=== PATIENT | male | born 1940 | race Caucasian/White ===

== ENCOUNTER → 2021-06-11 | Outpatient (CLI) | payer MEDICARE, BC ==
--- NOTE | 2021-06-11 15:34 | RAD ---
US DPLX ARTR EXTREM LOWER BILAT Indication: Reason: PVD, HTN, HX OF SMOKING, STENTS / Spl. Instructions: / History: Comparison: None. Procedure: Arterial pressures are measured in the arms and ankles. Findings: Right arm: 118 mm Hg. Right ankle: 128 mm Hg. Right leg EDENILSON: 1.1. Left arm: 122 mm Hg. Left ankle: 114 mm Hg. Left leg EDENILSON: 1.0. EDENILSON interpretation: Greater than 1.4 Calcified noncompressible vessels 0.96 to 1.4 Generally normal 0.81-0.95 Mild disease 0.51-0.80 Moderate disease 0.31-0.50 Moderate to severe disease 0.3 or below Severe disease IMPRESSION: 1. Normal bilateral ankle brachial indices. Electronically signed by: Jj Hansen DO (06/11/2021 3:32 PM) [id number]
--- NOTE | 2021-06-11 15:38 | RAD ---
MR#: [id number] Date of Study: 06/11/2021 Ordering Physician: MARIBELL LITTLEJOHN, Referring Physician: MARIBELL LITTLEJOHN, Tech: Zuleyma Longo RVT,MARCIAVA APPROVED REPORT Patient Location: OUT-PATIENT Indications PAD Grayscale images of the bilateral lower extremity arterial vessels demonstrates moderate diffuse athe rosclerotic plaque. On the right side there are overall mostly triphasic waveforms with normal velocities extending from the common femoral artery to the popliteal segment. Below the knee mildly elevated velocities are no dustin in the posterior tibial and peroneal vessels but no significant stenosis is noted with three-vess el runoff. On the left side there are elevated velocities at the level of the left common femoral artery it is u nclear if this is related to the previous anastomosis of his aortobifemoral bypass or due to technica l challenges but nonetheless there are triphasic waveforms suggestive of no significant proximal infl ow disease. Below the common femoral artery there are mostly triphasic and biphasic waveforms again overall suggestive of less than 50% stenosis. Elevated velocities are noted in the posterior tibial artery consistent with greater than 75% stenosis. Nonetheless, there is three-vessel runoff. Risk Factors Hypertension Smoking Surgery/Intervention Bypass Graft 1 : VELOCITY AND DOPPLER WAVEFORM ANALYSIS RIGHT cm/secWaveformSeverity LEFT cm/secWaveform Severity pCFA 86.8TriphasicpCFA 356.7Triphasic Prof Fem Art. 54.0TriphasicProf Fem Art. 58.0Biphasic Fem Art Prox. 107.7TriphasicFem Art Prox. 96.2Triphasic Fem Art Mid. 109.2TriphasicFem Art Mid. 87.4Triphasic Fem Art Dist. 133.0TriphasicFem Art Dist. 136.0Triphasic Pop Art(Fossa) 54.6TriphasicPop Art(AK) 49.5Triphasic MACHINE ADJUSTER LEADER Prox. 125.8TriphasicPTA Prox. 280.9Triphasic MACHINE ADJUSTER LEADER Dist. 87.9TriphasicPTA Dist. 52.7Monophasic Per Art Prox. 105.3TriphasicPer Art Prox. 71.9Triphasic DESHAWN Prox. 27.5BiphasicATA Prox. 57.5Triphasic DPA 35TriphasicDPA 93Monophasic Critical Notification Critical Value: No <Conclusion> 1. No significant right lower extremity arterial disease 2. Elevated left common femoral arterial velocities without focal stenosis based on waveforms. 3. Left posterior tibial artery stenosis 4. Recommend repeat arterial Doppler study in 6 months. Signed by : Maribell Littlejohn, Electronically Approved : 06/11/2021 15:37:48
--- NOTE | 2021-06-11 15:52 | RAD ---
MR#: [id number] Date of Study: 06/11/2021 Ordering Physician: MARIBELL LITTLEJOHN, Referring Physician: MARIBELL LITTLEJOHN, Tech: Zuleyma Longo RVT, [facility] APPROVED REPORT Patient Location: OUT-PATIENT Laterality:Bilateral Indications CVA/TIA: Grayscale images the bilateral carotid vessels demonstrates mild to moderate diffuse atherosclerotic plaque. On the right side overall there is 0 to less than 50% stenosis based on velocity criteria with normal ICA to CCA ratios and antegrade vertebral velocities within the normal range. On the left side there is likely a moderate 50 to 69% stenosis based on velocity criteria involving t he proximal and mid internal carotid artery. Normal ICA to CCA ratios on the left side with antegrad e vertebral velocities within the normal range. Risk Factors Hypertension: PAD Smoking Doppler Spectral Velocity Analysis Right Left pCCA 78/13 cm/spCCA 94/18 cm/s mCCA 74/16 cm/smCCA 97/20 cm/s dCCA 70/14 cm/sdCCA 96/18 cm/s Bulb 45/11 cm/sBulb 72/16 cm/s ECA 91/12 cm/sECA 97/9 cm/s pICA 58/14 cm/spICA 152/41 cm/s Michele 77/20 cm/smICA 129/35 cm/s dICA 89/26 cm/sdICA 106/29 cm/s Vert. 51/5 cm/sVert. 49/13 cm/s ICA/CCA 1.14ICA/CCA 1.62 Critical Notification Critical Value: No <Conclusion> 1. Moderate left internal carotid arterial disease. No significant right-sided disease. Signed by : Maribell Littlejohn, Electronically Approved : 06/11/2021 15:51:51
--- NOTE | 2021-06-11 19:51 | CARD ---
MR#: [id number] Date of Study: 06/11/2021 Ordering Physician: MARIBELL BURCH, Referring Physician: MARIBELL BURCH, Tech: Gianna Arellano, [facility] APPROVED REPORT EXAM: Two-dimensional and M-mode echocardiogram with Doppler and color Doppler. Other Information Quality : AverageHR: 85bpm INDICATION Atrial Fibrillation RISK FACTORS Hypertension Hyperlipidemia 2D DIMENSIONS RVDd3.5 (2.9-3.5cm)Left Atrium(2D)3.4 (1.6-4.0cm) IVSd1.0 (0.7-1.1cm)Aortic Root(2D)3.3 (2.0-3.7cm) LVDd4.2 (3.9-5.9cm)LVOT Diameter2.0 (1.8-2.4cm) PWd1.0 (0.7-1.1cm)LVDs2.8 (2.5-4.0cm) FS (%) 33.5 %SV49.9 ml Aortic Valve AoV Peak [place].159.0cm/sAoV VTI32.5cm AO Peak GR.10.1mmHgLVOT Peak [place].115.2cm/s LVOT VTI 25.86cmAO Mean GR.5mmHg MAGDI (VMAX)2.24vh8UWE (VTI)2.53cm2 Mitral Valve MV E Psfxjsiv18.4cm/sMV E Peak Gr.5mmHg MV DECEL [id number] A Alfnfhxz893.5cm/s MV E Mean Gr.2mmHgE/A Ratio0.6 Pulmonary Valve PV Peak Unawmnma810.6cm/sPV Peak Grad.4mmHg Tricuspid Valve TR P. Cdmurppk285wq/sRAP LHUXFUPL1hbNr TR Peak Gr.80brAyWZPY83uyJc LEFT VENTRICLE The left ventricle is normal size. There is normal left ventricular wall thickness. The left ventricu lar systolic function is normal and the ejection fraction is within normal range. The Ejection Fracti on is 55-60%. There is normal LV segmental wall motion. Transmitral Doppler flow pattern is Grade I-a bnormal relaxation pattern. RIGHT VENTRICLE The right ventricle is borderline dilated. There is normal right ventricular wall thickness. The righ t ventricular systolic function is normal. ATRIA The left atrium size is normal. The right atrium is borderline dilated. The interatrial septum is int act with no evidence for an atrial septal defect or patent foramen ovale as noted on 2-D or Doppler i maging. AORTIC VALVE The aortic valve is normal in structure and function. Doppler and Color Flow revealed trace aortic re gurgitation. There is no significant aortic valvular stenosis. Calculated aortic valve area is 2.5 cm 2 with maximum pressure gradient of 11 mmHg and mean pressure gradient of 6 mmHg. MITRAL VALVE The mitral valve is normal in structure and function. There is no evidence of mitral valve prolapse. There is no mitral valve stenosis. Doppler and Color Flow revealed no mitral valve regurgitation note d. TRICUSPID VALVE The tricuspid valve is normal in structure and function. Doppler and Color Flow revealed trace tricus pid regurgitation with an estimated PAP of 39 mmHg. There is no tricuspid valve stenosis. GREAT VESSELS The aortic root is normal in size. The ascending aorta is normal in size. The IVC is normal in size a nd collapses >50% with inspiration. PERICARDIAL EFFUSION There is no evidence of significant pericardial effusion. Critical Notification Critical Value: No <Conclusion> The left ventricle is normal size. The left ventricular systolic function is normal and the ejection fraction is within normal range. The Ejection Fraction is 55-60%. Doppler and Color Flow revealed trace aortic regurgitation. There is no significant aortic valvular stenosis. Doppler and Color Flow revealed no mitral valve regurgitation noted. Doppler and Color Flow revealed trace tricuspid regurgitation with an estimated PAP of 39 mmHg. Signed by : Syed Bautista MD Electronically Approved : 06/11/2021 19:50:14
== END ==
LOC: US 12:50
PROVIDERS: ATTEND Internal Medicine Cardiovascular Disease
DX: I65.23 Occlusion and stenosis of bilateral carotid arteries (principal); I70.8 Atherosclerosis of other arteries; I48.91 Unspecified atrial fibrillation; I73.9 Peripheral vascular disease, unspecified; I63.9 Cerebral infarction, unspecified
CPT/HCPCS: 93306; 93880; 93923; 93925

== ENCOUNTER → 2021-06-19 | Outpatient (CLI) | payer MEDICARE ==
[~2021-06-19] MED LIST: REGADENOSON 0.4 MG/5 ML DISP.SYRIN. IV ONE
--- NOTE | 2021-06-19 18:42 | RAD ---
MR#: [id number] Date of Study: 06/19/2021 Ordering Physician: MARIBELL LITTLEJOHN, Referring Physician: MARYCARMEN MURRELL Tech: JEROME Schwartz ARRT (R) (N) APPROVED REPORT Test Type: Pharmacological Stress Nurse/Tech: ANITHA Mcrae Test Indications: CAD Cardiac History: High cholesterol, Hypertension, PTCA Medications: See Electronic Medical Record Medical History: See Electronic Medical Record Resting ECG: SR Resting Heart Rate: 59 bpm Resting Blood Pressure: 168/65mmHg Pretest Chest Pain: None Nurse/Tech Notes SR, no significant acute changes Consent: The procedure was explained to the patient in lay terms. Informed consent was witnessed. Baljit eout was entered into [employer]. History and Stress Test performed by JEROME Schwartz ARRT (R) (N) Pharm. Details Pharmacologic stress testing was performed using 0.4mg per 5ml of regadenoson given intravenously ove r 7-10 seconds. Stress Symptoms No chest pain or symptoms. POST EXERCISE Reason for Termination: Infusion complete Target HR: No Max HR: 92 bpm 77% of Maximum Predicted HR: 118 bpm Exercise duration: 6 min:sec, Stage Max Blood Pressure: 169/75mmHg Blood Pressure response to exercise: Normal blood pressure response during stress. Chest Pain: No. Arrhythmia: No. ST Change: No. INTERPRETATION Stress EKG Conclusion: SR, no significant acute changes w/ stress. Imaging Protocol IMAGE PROTOCOL: Rest Tc-99m/stress Tc-99m 1 day Rest: Stress: Viability: Radiopharm.Tc99m AkfutuiwaKt64c Sestamibi Cazt55qKq 31mCi Img Date 06/19/2021 06/19/2021 Inj-Img Zpij16cya. 60min. Rest Admin Site:IV - Right AntecubitalAdministrator: JEROME Schwartz ARRT (R)(N) Stress Admin Site: IV - Right AntecubitalAdministrator: JEROME Schwartz ARRT (R)(N) STRESS DATA End Diast. Vol.71.0mlAv. Heart Rate64.0bpm End Syst. Vol.18.0mlCO Index BSA0.0L/min Myocardial Fbws923.0gEject. Gzhbbuhk69.0% Stress Rates Pk. Fill Rate2.53EDV/secLVtime Pk. Fill 170.39msec Pk. Empty Rate4.31ESV/secLVtime Pk. Enkwh244.38msec 1/3 Pk. Fill1.40EDV/sec Stress Scores Regional WT0.00Summed WT3.00 Regional WM0.00Summed WM0.00 The rest and stress images show normal perfusion, normal contraction and thickening. LV Perf. Quant 17 Seg. SSS0.00 17 Seg. SRS2.00 17 Seg. SDS0.00 Stress Defect Extent (% LAD)0.00Rest Defect Extent (% LAD)0.00Rev. Defect Extent (% LAD)0.00 Stress Defect Extent (% LCX) 0.00Rest Defect Extent (% LCX)0.00Rev. Defect Extent (% LCX)0.00 Stress Defect Extent (% RCA)0.00Rest Defect Extent (% RCA)4.40Rev. Defect Extent (% RCA)0.00 Stress Defect Extent (% YURIDIA)0.00Rest Defect Extent (% YURIDIA)0.90Rev. Defect Extent (% YURIDIA)0.00 Other Information Quality:Good Risk Assessment: Low Risk Conclusion 1. No evidence of EKG changes with stress testing. 2. Normal perfusion at stress/rest. 3. Low risk study. 4. EF > 60%. Signed by : Maribell Littlejohn, Electronically Approved : 06/19/2021 18:41:39
== END ==
LOC: NM 07:45
PROVIDERS: ATTEND Internal Medicine Cardiovascular Disease
DX: I25.10 Atherosclerotic heart disease of native coronary artery without angina pectoris (principal)
CPT/HCPCS: 78452; 93017; A9500; J2785

== ENCOUNTER 2021-11-07 08:02 | Emergency (ER) | payer MEDICARE ==
[~2021-11-07] VITALS: Ht 177.8 cm; Wt 73.5 kg
[2021-11-07 08:33] VITALS: BP 166/78
[2021-11-07] MEDS ORDERED: IOHEXOL 350 MG/ML 100 ML VIAL. IV ONE (10:00)
[2021-11-07] MEDS ORDERED: CONTRAST GIVEN. MC PRN (10:00)
[2021-11-07 10:10] LABS: BASO % 1 % (0-3); EOS # 0.1 x10^3/uL (0.0-0.7); EOS % 1 % (0-3); HEMATOCRIT 41.8 % (39.0-53.0); HEMOGLOBIN 13.8 g/dL (13.0-17.5); LYMPH % 16 % (24-48); MEAN CORPUSCULAR HEMOGLOBIN 32 pg (25-35); MEAN CORPUSCULAR HGB CONC 33 g/dL (31-37); MEAN CORPUSCULAR VOLUME 96 fL (79-100); MONO # 0.7 x10^3/uL (0.0-1.1); MONO % 11 % (0-9); NEUT # 4.3 x10^3uL (1.8-7.7); NEUT % 71 % (31-73); PLATELET COUNT 174 x10^3/uL (140-400); RED BLOOD COUNT 4.34 x10^6/uL (4.30-5.70); RED CELL DISTRIBUTION WIDTH 15.4 % (11.5-14.5); WHITE BLOOD COUNT 6.1 x10^3/uL (4.0-11.0)
[2021-11-07 10:19] LABS: CALCIUM 9.1 mg/dL (8.5-10.1); CREATININE 0.9 mg/dL (0.7-1.3); GFR 80.8; POTASSIUM 4.1 mmol/L (3.5-5.1)
[2021-11-07 10:25] LABS: ALBUMIN 3.7 g/dL (3.4-5.0); ALBUMIN/GLOBULIN RATIO 0.9 (1.0-1.7); TOTAL BILIRUBIN 0.4 mg/dL (0.2-1.0); TOTAL PROTEIN 7.9 g/dL (6.4-8.2)
--- NOTE | 2021-11-07 10:39 | PHYS DOC ---
Past History Past Surgical History: Coronary Bypass Surgery, Other Additional Past Surgical Histo: 3 stents in heart; 1 stent in right femoral; hernia sx Alcohol Use: Occasionally General Adult EDM: Chief Complaint: COUGH HPI: HPI: Patient is a 81-year-old male coming in for hemoptysis for the past 2 days. Patient states he normally has to cough and wears clear his throat and usually has productive cough has not seen blood in it before. States takes an 81 mg aspirin but no other blood thinners. Has a history of smoking and COPD. Denies any history of blood clots. Denies any fevers. He states the blood is sometimes dark and and clots but some noticed bright red streaks of mucus. Denies any chest or throat pain. Review of Systems: Review of Systems: All other systems within normal limits except for as noted in the HPI Current Medications: Current Meds: Current Medications Medications (Trade) Dose Ordered Sig/Whitney Start Time Stop Time Status Last Admin Dose Admin Info (Do NOT chart on this entry -- for MONITORING) 1 each PRN DAILY PRN 11/07/21 10:00 11/09/21 09:59 Iohexol (Omnipaque 350 Mg/ml) 100 ml 1X ONCE 11/07/21 10:00 11/07/21 10:01 DC 11/07/21 10:36 100 ML Allergies: Allergies: Allergies Coded Allergies Type Severity Reaction Last Updated Verified No Known Drug Allergies 06/19/21 No Physical Exam: PE: Constitutional: Well developed, well nourished, no acute distress, non-toxic appearance. [] HENT: Normocephalic, atraumatic, bilateral external ears normal, nose normal. Oropharynx clear, no evidence of active bleeding [] Eyes: PERRLA, conjunctiva normal, no discharge. [] Neck: No rigidity, supple, no stridor. [] Cardiovascular: Regular rate and rhythm, brisk cap refill [] Lungs & Thorax: Non labored symmetric respirations, no tachypnea or respiratory distress. Clear to auscultation [] Abdomen: Soft, nondistended. Skin: Warm, dry, no erythema, no rash. [] Back: Unremarkable Extremities: No deformities, range of motion grossly intact, no lower extremity edema [] Neurologic: Alert and oriented X 3, no focal deficits noted. [] Psychologic: Affect normal, judgement normal, mood normal. [] Current Patient Data: Labs: Laboratory Tests Test 11/07/21 09:55 White Blood Count 6.1 x10^3/uL (4.0-11.0) Red Blood Count 4.34 x10^6/uL (4.30-5.70) Hemoglobin 13.8 g/dL (13.0-17.5) Hematocrit 41.8 % (39.0-53.0) Mean Corpuscular Volume 96 fL (79-100) Mean Corpuscular Hemoglobin 32 pg (25-35) Mean Corpuscular Hemoglobin Concent 33 g/dL (31-37) Red Cell Distribution Width 15.4 % (11.5-14.5) H Platelet Count 174 x10^3/uL (140-400) Neutrophils (%) (Auto) 71 % (31-73) Lymphocytes (%) (Auto) 16 % (24-48) L Monocytes (%) (Auto) 11 % (0-9) H Eosinophils (%) (Auto) 1 % (0-3) Basophils (%) (Auto) 1 % (0-3) Neutrophils # (Auto) 4.3 x10^3uL (1.8-7.7) Lymphocytes # (Auto) 1.0 x10^3/uL (1.0-4.8) Monocytes # (Auto) 0.7 x10^3/uL (0.0-1.1) Eosinophils # (Auto) 0.1 x10^3/uL (0.0-0.7) Basophils # (Auto) 0.0 x10^3/uL (0.0-0.2) Sodium Level 145 mmol/L (136-145) Potassium Level 4.1 mmol/L (3.5-5.1) Chloride Level 109 mmol/L (98-107) H Carbon Dioxide Level 27 mmol/L (21-32) Anion Gap 9 (6-14) Blood Urea Nitrogen 23 mg/dL (8-26) Creatinine 0.9 mg/dL (0.7-1.3) Estimated GFR (Cockcroft-Gault) 80.8 BUN/Creatinine Ratio 26 (6-20) H Glucose Level 119 mg/dL (70-99) H Calcium Level 9.1 mg/dL (8.5-10.1) Total Bilirubin 0.4 mg/dL (0.2-1.0) Aspartate Amino Transferase (AST) 19 U/L (15-37) Alanine Aminotransferase (ALT) 38 U/L (16-63) Alkaline Phosphatase 57 U/L (46-116) Total Protein 7.9 g/dL (6.4-8.2) Albumin 3.7 g/dL (3.4-5.0) Albumin/Globulin Ratio 0.9 (1.0-1.7) L Vital Signs: Vital Signs Date Time Temp Pulse Resp B/P (MAP) Pulse Ox O2 Delivery O2 Flow Rate FiO2 11/07/21 08:33 97.9 73 20 166/78 (107) 96 Room Air EKG: EKG: [] Radiology/Procedures: Radiology/Procedures: [][place] [address] IMAGING REPORT Signed PATIENT: YULISSA HOWELL RACCOUNT: [id number] : 1940 LOCATION: ER AGE: 81 SEX: M EXAM STATUS: REG ER ORD. PHYSICIAN: KENNETH MICHAELS MD REASON: hemoptysis- ce ordered, OMNI 350, 100ml PROCEDURE: CT ANGIOGRAPHY CHEST CTA CHEST History: Hemoptysis. Rule out PE. Comparison: None. Technique: CTA of the pulmonary arteries with intravenous contrast. 3-D postprocessing was performed. Findings: Pulmonary arteries: No pulmonary embolism. Aorta and great vessels: No aneurysm or dissection of the aortic arch or thoracic aorta. Moderate atherosclerosis. Thyroid: No significant abnormalities. Mediastinum and issa: No mediastinal masses or adenopathy is seen. Esophagus: Small sliding hiatal hernia. Heart: The heart is normal in size. There is no pericardial effusion. Heavy coronary artery calcification. Airways, Lungs, Pleura: Severe emphysematous change with multiple large paraseptal bulla. The central airways are patent. There is a 8 x 5 mm right upper lobe pulmonary nodule (axial 33). Large heterogeneously calcified right upper lobe nodule measures 2.1 x 1.5 cm (axial 56). Irregular left upper lobe nodule measures 2.0 x 1.1 cm (axial 77) with adjacent emphysematous change. Patchy medial left upper lobe groundglass opacities. Upper abdomen: Partially visualized infrarenal aortic aneurysm status post stent grafting, maximum diameter 5.5 cm. Multiple hepatic Osseous structures and soft tissues: Within normal limits for age. Impression: 1. No pulmonary embolism, thoracic aortic aneurysm or aortic dissection. 2. Suspicious irregular pulmonary nodules measuring 2.0 x 1.1 cm in the left upper lobe and 0.8 x 0.5 cm in the right upper lobe which may represent malignancy. Recommend correlation with prior chest imaging can be made available. Otherwise consider PET/CT or tissue sampling or 3 month short interval follow-up noncontrast chest CT to evaluate for stability. 3. Groundglass opacity in the medial left upper lobe may represent infectious infiltrate. This can be followed up on with pulmonary nodules. 4. Severe emphysematous change and large calcified right upper lobe nodule, consistent with benign granuloma. 5. Other chronic findings including small sliding hiatal hernia, heavy coronary artery calcification and partially visualized infrarenal aortic aneurysm status post stent graft. ------ Exposure: One or more of the following individualized dose reduction techniques were utilized for this examination: 1. Automated exposure control 2. Adjustment of the mA and/or kV according to patient size 3. Use of iterative reconstruction technique. Electronically signed by: Nick Crain MD (11/07/2021 11:24 AM) [id number] DICTATED AND SIGNED BY: NICK CRAIN MD DATE: 11/07/21 1112 CC: KENNETH MICHAELS MD; GSISEL HAMMER MD ~MTH0 0 Heart Score: C/O Chest Pain: No Risk Factors: Risk Factors: DM, Current or recent (<one month) smoker, HTN, HLP, family history of CAD, obesity. Risk Scores: Score 0 - 3: 2.5% MACE over next 6 weeks - Discharge Home Score 4 - 6: 20.3% MACE over next 6 weeks - Admit for Clinical Observation Score 7 - 10: 72.7% MACE over next 6 weeks - Early Invasive Strategies Course & Med Decision Making: Course & Med Decision Making Pertinent Labs and Imaging studies reviewed. (See chart for details) [] Nav Disclaimer: Nav Disclaimer: This electronic medical record was generated, in whole or in part, using a voice recognition dictation system. Departure Departure: Impression: Primary Impression: Pneumonia Additional Impression: Lung nodule Disposition: HOME / SELF CARE / HOMELESS Condition: STABLE Referrals: GISSEL HAMMER MD (PCP) Patient Instructions: Hemoptysis Additional Instructions: Call your primary care provider today to make an appointment to follow-up on lung nodule. KENNETH MICHAELS MD Nov 07, 2021 10:39
--- NOTE | 2021-11-07 11:26 | RAD ---
CTA CHEST History: Hemoptysis. Rule out PE. Comparison: None. Technique: CTA of the pulmonary arteries with intravenous contrast. 3-D postprocessing was performed. Findings: Pulmonary arteries: No pulmonary embolism. Aorta and great vessels: No aneurysm or dissection of the aortic arch or thoracic aorta. Moderate ath erosclerosis. Thyroid: No significant abnormalities. Mediastinum and issa: No mediastinal masses or adenopathy is seen. Esophagus: Small sliding hiatal hernia. Heart: The heart is normal in size. There is no pericardial effusion. Heavy coronary artery calcifica tion. Airways, Lungs, Pleura: Severe emphysematous change with multiple large paraseptal bulla. The central airways are patent. There is a 8 x 5 mm right upper lobe pulmonary nodule (axial 33). Large heteroge neously calcified right upper lobe nodule measures 2.1 x 1.5 cm (axial 56). Irregular left upper lobe nodule measures 2.0 x 1.1 cm (axial 77) with adjacent emphysematous change. Patchy medial left upper lobe groundglass opacities. Upper abdomen: Partially visualized infrarenal aortic aneurysm status post stent grafting, maximum di ameter 5.5 cm. Multiple hepatic Osseous structures and soft tissues: Within normal limits for age. Impression: 1. No pulmonary embolism, thoracic aortic aneurysm or aortic dissection. 2. Suspicious irregular pulmonary nodules measuring 2.0 x 1.1 cm in the left upper lobe and 0.8 x 0. 5 cm in the right upper lobe which may represent malignancy. Recommend correlation with prior chest i maging can be made available. Otherwise consider PET/CT or tissue sampling or 3 month short interval follow-up noncontrast chest CT to evaluate for stability. 3. Groundglass opacity in the medial left upper lobe may represent infectious infiltrate. This can b e followed up on with pulmonary nodules. 4. Severe emphysematous change and large calcified right upper lobe nodule, consistent with benign g ranuloma. 5. Other chronic findings including small sliding hiatal hernia, heavy coronary artery calcification and partially visualized infrarenal aortic aneurysm status post stent graft. ------ Exposure: One or more of the following individualized dose reduction techniques were utilized for thi s examination: 1. Automated exposure control 2. Adjustment of the mA and/or kV according to patient size 3. Use of iterative reconstruction technique. Electronically signed by: Nick Garcia MD (11/07/2021 11:24 AM) [id number]
[2021-11-07] MEDS ORDERED: LEVO750T5 PO (12:10)
== END 2021-11-07 12:46 | disposition home or self-care (01) ==
LOC: ER 08:02
DX: J18.9 Pneumonia, unspecified organism (principal); R91.1 Solitary pulmonary nodule
CPT/HCPCS: 36415; 71275; 80053; 85025; 99284; Q9967

== ENCOUNTER → 2021-12-10 | Outpatient (CLI) | payer MEDICARE, BC ==
[~2021-12-10] MED LIST changes: +LEVO750T5 PO; -REGADENOSON 0.4 MG/5 ML DISP.SYRIN. IV ONE
--- NOTE | 2021-12-10 11:51 | RAD ---
EXAM: DUAL ENERGY X-RAY ABSORPTIOMETRY (DEXA). HISTORY: Steroid use. Osteoporosis screening. FINDINGS: The lowest measured T-score is -1.3 in the right hip, based on a bone mineral density of 0. 869 g/cm^2. Refer to the worksheets for full detail. No comparison examinations are available. IMPRESSION: 1. Low bone mass. Bone mineral density yields a T-score between -1.0 and -2.5. Fracture risk is incre ased. 2. FRAX report: Not calculated. METHODOLOGY: Dual energy x-ray absorptiometry was performed to measure bone mineral density. The foll owing analysis is based on the 2019 Official Positions of the International Society for Clinical Dens itometry: Measurements of the hips and the average of L1-L4 are preferred. When the spine and/or hip cannot be feasibly measured or interpreted, or in the setting of hyperparathyroidism, distal radial bone minera l density may be measured. The lumbar spine T-score is based on the average bone mineral density of L1-L4. In the setting of art ifact or anatomic abnormality, some lumbar levels may be excluded, and the remaining levels used for calculation. A single lumbar level is not used for diagnosis, and if only a single level is available for assessment, another anatomic site will be used to assign a diagnosis. The hip T-score is based on the bone mineral density measurement of the femoral neck or total proxima l femur of either side, whichever is lowest. Bilateral mean values are not used for diagnosis. The forearm T-score is derived from 33% of the distal radius of the nondominant forearm. Electronically signed by: Ana Luisa Brock MD (12/10/2021 11:48 AM) [id number]
== END ==
LOC: DXRAD 09:54
PROVIDERS: ATTEND Family Medicine
DX: Z13.820 Encounter for screening for osteoporosis (principal); M85.88 Other specified disorders of bone density and structure, other site; R91.1 Solitary pulmonary nodule
CPT/HCPCS: 77080

== ENCOUNTER → 2022-01-27 | Outpatient (CLI) | payer MEDICARE, BC ==
[~2022-01-27] MED LIST changes: +IOHEXOL 350 MG/ML 100 ML VIAL. IV ONE; +IOHEXOL 350 MG/ML 100 ML VIAL. ONE
[2022-01-27 09:23] LABS: GFR 71.5
--- NOTE | 2022-01-27 10:32 | RAD ---
EXAM: CT angiography of the abdomen with intravenous contrast. HISTORY: Aortic aneurysm. Iliac stent. TECHNIQUE: Computed tomographic images of the abdomen were obtained following the administration of i ntravenous contrast according to angiography protocol. Multiplanar reformatting was performed and thr ee dimensional maximum intensity projection images were obtained. *One or more of the following individualized dose reduction techniques were utilized for this examina tion: 1. Automated exposure control. 2. Adjustment of the mA and/or kV according to patient size. 3. Use of iterative reconstruction technique. COMPARISON: 11/07/2021. 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 The excluded aneur ysm sac measures 5.6 cm in maximum caliber. The endograft extends from the origins of the bilateral r enal arteries into the iliac arteries. There is aneurysmal dilatation of the common iliac arteries, m easuring 3.5 cm on the left and 2.6 cm on the right. There is embolization material within the right hemipelvis likely within the right internal iliac artery. There is contrast within the right posterior aspect of the excluded aneurysm sac approximately 6 cm f rom the iliac bifurcation. There is also contrast within the excluded left iliac artery aneurysm sac. This consistent with type I and likely type III endoleaks. There is calcified atherosclerotic plaque involving the aorta and aortic branch vessels. This results in greater than 70 percent stenosis the origin of the right renal artery and approximately 50 percen t stenosis of the origin and proximal aspects of the left renal artery. The celiac axis and superior mesenteric artery are patent. There is contrast within the inferior mesenteric artery. The, in and external iliac arteries are occluded. There is partial visualization of a femoral to femo ral bypass graft which appears to be patent. There is fluid or soft tissue density surrounding the gr aft within the left inguinal region likely due to postoperative change or scar/granulation tissue. Th ere is moderate atherosclerotic plaque throughout the left iliac bifurcation resulting in less than 5 0 percent stenosis within the [id number]. The heart is normal in size. There is pulmonary emphysema. There is bilateral lower lobe scarring. Th ere is a small hiatal hernia. There are multiple hypodense lesions within the liver, the largest of w hich measures 3.0 cm and is consistent with a cyst. The smallest lesions are too small to characteriz e. There are gallstones or small gallbladder wall calcifications. The pancreas, spleen and right adre nal gland are unremarkable. There is left adrenal gland thickening. There is renal atrophy. There are nonobstructing right renal stones measuring up to 5 mm. There is no hydronephrosis or suspicious daylin al lesion. There is no appendicitis. There is extensive colonic diverticulosis. There is no lymphadenopathy. The re is degenerative change throughout the spine. There is scoliosis, hyperlordosis and multilevel list hesis. There is no acute osseous finding. IMPRESSION: 1. 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 The excluded aneurysm sac measures 5. 6 cm in maximum caliber. There is contrast within the inferior aspect of the excluded aneurysm sac as well as within and excluded left common iliac artery aneurysm, consistent with type I and likely typ e III endoleaks. There is no prior study extending to this region for comparison. 2. 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 3. 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 This is predominantly excluded from the [id number]. 4. Aortic and iliac branch vessel atherosclerosis, resulting in stenosis primarily at the origin of t he right renal artery. 5. Multiple hypodense lesions within the liver, the largest of which are consistent with cysts and th e smallest of which are too small to characterize. In the absence of known malignancy, these are also likely cysts. 6. Colonic diverticulosis. 7. Renal atrophy and right nephrolithiasis. 8. Tiny gallbladder wall calcifications or nonmobile gallstones. 9. Severe pulmonary emphysema. 10. Hiatal hernia. Electronically signed by: Ana Luisa Brock MD (01/27/2022 10:30 AM) [id number]
--- NOTE | 2022-01-28 10:54 | RAD ---
MR#: [id number] Date of Study: 01/27/2022 Ordering Physician: MARIBELL BURCH, Referring Physician: MARIBELL BURCH, Tech: Radha Jo RVT, [facility] APPROVED REPORT Patient Location : OUT-PATIENT Critical Notification Critical Value: No <Conclusion> FINDINGS Grayscale images of superficial veins of bilateral lower extremities and saphenofemoral junctions wer e grossly unremarkable without any evidence of thrombus. Spectral waveform and color duplex analysis did not show any significant insufficiency involving bilateral greater or lesser saphenous veins. CONCLUSION Bilateral lower extremity venous reflux study did not show any significant venous insufficiency. Signed by : Peter Chavez, Electronically Approved : 01/28/2022 10:53:59
== END ==
LOC: US 08:21
PROVIDERS: ATTEND Internal Medicine Cardiovascular Disease
DX: I71.4 Abdominal aortic aneurysm, without rupture (principal); I87.2 Venous insufficiency (chronic) (peripheral); I70.1 Atherosclerosis of renal artery; I72.8 Aneurysm of other specified arteries; I70.0 Atherosclerosis of aorta; J43.9 Emphysema, unspecified; J98.4 Other disorders of lung; N20.0 Calculus of kidney; K44.9 Diaphragmatic hernia without obstruction or gangrene; N26.1 Atrophy of kidney (terminal); K57.30 Diverticulosis of large intestine without perforation or abscess without bleeding; M41.86 Other forms of scoliosis, lumbar region; M47.816 Spondylosis without myelopathy or radiculopathy, lumbar region
CPT/HCPCS: 36415; 74175; 82565; 84520; 93970; Q9967

== ENCOUNTER → 2022-02-10 | Outpatient (CLI) | payer MEDICARE, BC ==
[~2022-02-10] MED LIST changes: -IOHEXOL 350 MG/ML 100 ML VIAL. IV ONE; -IOHEXOL 350 MG/ML 100 ML VIAL. ONE
[2022-02-10 14:53] LABS: ALBUMIN 3.8 g/dL (3.4-5.0); ALBUMIN/GLOBULIN RATIO 1.1 (1.0-1.7); CALCIUM 9.6 mg/dL (8.5-10.1); CREATININE 0.9 mg/dL (0.7-1.3); GFR 80.8; TOTAL BILIRUBIN 0.4 mg/dL (0.2-1.0); TOTAL PROTEIN 7.3 g/dL (6.4-8.2)
== END ==
LOC: LAB 13:14
PROVIDERS: ATTEND Internal Medicine Cardiovascular Disease
DX: I10 Essential (primary) hypertension (principal)
CPT/HCPCS: 36415; 80053; 83880

== ENCOUNTER → 2022-02-10 | Outpatient (CLI) | payer MEDICARE, BC ==
--- NOTE | 2022-02-11 13:24 | RAD ---
EXAMINATION: CT Chest Without IV contrast. INDICATION:81 years, Male, follow-up pulmonary nodules. COMPARISON: 11/07/2021. TECHNIQUE: Spiral CT was obtained from the jugular notch through the posterior costophrenic recess. 3 -D MIPS, sagittal and coronal reformats were obtained. Exposure: One or more of the following individualized dose reduction techniques were utilized for thi s examination: 1. Automated exposure control 2. Adjustment of the mA and/or kV according to patient size 3. Use of iterative reconstruction technique. FINDINGS: LUNGS/PLEURA: Central airways are patent. Moderate centrilobular and paraseptal pulmonary emphysema. Linear scarring versus atelectatic changes in the right lung base. No focal consolidation, pleural ef fusion or pneumothorax. Stable irregular cavitary nodule in the left upper lobe measures 2.4 x 1.2 cm (remeasured). Stable 8 x 5 mm irregular solid pulmonary nodule in the right lung apex. Straightening large calcified right upper lobe granuloma, unchanged. MEDIASTINUM: No pathologic mediastinal or hilar adenopathy. The thoracic aorta and pulmonary arteries are normal in caliber. The heart is normal in size. No pericardial effusion. Severe calcified saravia ry atherosclerosis. The visualized thyroid and the esophagus are unremarkable. AXILLA/SOFT TISSUE: No supraclavicular or axillary adenopathy. Regional soft tissues are within marito l limits. UPPER ABDOMEN: Small hiatal hernia. Stable simple appearing left hepatic lobe cyst. Diffuse pancreati c atrophy. Partially visualized aortic stent. BONES: No evidence of acute fractures or aggressive osseous lesions. Multilevel degenerative changes in the spine. IMPRESSION: Stable 2.4 cm cavitary left upper lobe and 0.8 cm solid right upper lobe pulmonary nodules. Electronically signed by: Shayne Johnson MD (02/11/2022 1:21 PM) [id number]
== END ==
LOC: CT 13:12
PROVIDERS: ATTEND Family Medicine
DX: R91.8 Other nonspecific abnormal finding of lung field (principal); J43.2 Centrilobular emphysema; J84.10 Pulmonary fibrosis, unspecified; I25.10 Atherosclerotic heart disease of native coronary artery without angina pectoris; K44.9 Diaphragmatic hernia without obstruction or gangrene; K86.89 Other specified diseases of pancreas
CPT/HCPCS: 71260